=== PATIENT | female | born 1950 | race Caucasian/White ===

== ENCOUNTER 2016-09-19 12:28 | Inpatient (IN) ==
[2016-09-21] MEDS ORDERED: *HR* OxyCODONE Immed Rel 5 MG TABLET PO PRN ×2 (12:44→14:29)
[2016-09-21] MEDS ORDERED: *HR* OxyCODONE/APAP 5/325 TABLET PO PRN ×2 (13:23)
[2016-09-21] MEDS: *HR* OxyCODONE Immed Rel 5 MG TABLET PO PRN ×2 (17:21→22:07)
[2016-09-22 05:52] LABS: INR 1.1; Prothrombin Time 12.3 Seconds (9.4-12.1)
[2016-09-22 05:57] LABS: Basophils # 0.1 K/mcL (0.0-0.2); Basophils % 0.8 %; Eosinophils # 0.2 K/mcL (0.0-0.6); Eosinophils % 2.9 %; Hemoglobin 11.1 g/dL (11.5-15.4); Immature Granulocytes % 0.6 % (0-4); Lymphocytes # 1.6 K/mcL (0.6-4.6); Lymphocytes % 24.8 %; Mean Corpuscular HGB Conc 33.6 g/dL (31.6-35.5); Mean Corpuscular Hemoglobin 30.1 pg (28.0-33.3); Mean Corpuscular Volume 89.4 fL (83.0-100.0); Mean Platelet Volume 10.8 fL (9.4-12.4); Monocytes # 0.7 K/mcL (0.0-1.3); Monocytes % 10.4 %; Platelet Count 266 K/mcL (140-400); Red Blood Count 3.69 M/mcL (3.82-4.97); Red Cell Distribution Width 15.6 % (11.5-14.5); Segmented Neutrophils % 60.5 %
[2016-09-22 06:02] LABS: BUN/Creatinine Ratio 12 (6-26); Blood Urea Nitrogen 8 mg/dL (7-20); Calcium 9.3 mg/dL (8.6-10.8); Carbon Dioxide 27 mEq/L (19-29); Chloride 103 mEq/L (98-109); Glucose 103 mg/dL (70-99); Osmolality,Calculated 289 (280-300); Potassium 3.9 mEq/L (3.5-4.5); Sodium 140 mEq/L (136-145); eGFR For African Americans > 60 (> 60); eGFR For Non-African Americans > 60 (> 60)
[2016-09-22] MEDS: *HR* OxyCODONE Immed Rel 5 MG TABLET PO PRN ×5 (06:09→22:22)
[2016-09-22] MEDS: Ascorbic Acid 500 MG TABLET PO SCH (08:36)
[2016-09-22] MEDS: Cyanocobalamin (B-12) 1,000 MCG TABLET PO SCH (08:36)
[2016-09-22] MEDS: Aspirin Enteric Coated 325 MG Tablet PO SCH (08:36)
--- NOTE | 2016-09-22 14:33 | Internal Med History&Physical ---
Date of Encounter: 09/22/16 Time of Encounter: 14:00 Assessment and Plan (1) Closed fracture of femur with nonunion Current visit: No Status: Acute Working with PT OT and TR. Qualifiers: Encounter type: subsequent encounter Femur location: unspecified portion of femur Fracture morphology: unspecified fracture morphology Laterality: left Qualified Code(s): S72.92XK - Unspecified fracture of left femur, subsequent encounter for closed fracture with nonunion Internal Medicine - H&P: HPI Admitted From: Hospital to Hospital Transfer Plans for Post Hospital Care: Home History of present illness: Ms. Allen is a 65 year old female Past Med Surg Social Fam HX - Past Medical History Medical history: arthritis, hypertension Psychiatric history: anxiety - Past Surgical History Surgical History: appendectomy, herniorrhaphy, hysterectomy, other - Social History Smoking Status: Never smoker Smokeless Tobacco Status: No Alcohol use: none Drug use: none - Family History Father Hx Family Cardiac Disorders: Yes (CAD) Internal Medicine - H&P: Meds Ascorbic Acid [Vitamin C] 500 mg PO DAILY 02/20/15 [History] Propranolol HCl 40 mg PO BID 02/20/15 [History] Zolpidem [Ambien] 10 mg PO HS #30 tablet 04/02/16 [Rx] Aspirin Enteric Coated [Aspirin EC] 325 mg PO DAILY #21 tablet. 09/14/16 [Rx] OxyCODONE Immed Rel [Roxicodone 5 MG] 5 - 10 mg PO Q6HR PRN #40 tablet 09/14/16 [Rx] Cyanocobalamin (Vitamin B-12) [Vitamin B12] 5,000 mcg PO DAILY 09/15/16 [History ] Paroxetine HCl [Paroxetine] 40 mg PO DAILY 09/15/16 [History] Tizanidine HCl 6 mg PO TID PRN 09/15/16 [History] Ascorbic Acid [Vitamin C] 500 mg PO BIDWM #60 tablet 09/21/16 [Rx] Docusate [Colace] 100 mg PO BID #20 capsule 09/21/16 [Rx] Ferrous Sulfate 325 mg PO BIDWM tablet 09/21/16 [Rx] Levofloxacin [Levaquin] 500 mg PO DAILY 2 Days 09/21/16 [Rx] Losartan [Cozaar] 25 mg PO DAILY #30 tablet 09/21/16 [Rx] Multivit/Ca/Min/Fe/FA [Thera M Plus] 1 tab PO DAILY #0 tablet 09/21/16 [Rx] OxyCODONE Immed Rel [Roxicodone 5 MG] 5 - 10 mg PO Q6HR PRN #30 tab 09/21/16 [Rx ] Allergies fentanyl Adverse Reaction (Verified 07/01/16 19:51) Hives ketorolac [From Toradol] Adverse Reaction (Verified 07/01/16 19:51) Hives Penicillins Adverse Reaction (Verified 07/01/16 19:51) Hives prochlorperazine [From Compazine] Adverse Reaction (Verified 07/01/16 19:51) Hives All Systems PM: A 10-system review of systems was performed and is negative for pertinent findings except as documented above in the HPI. - Constitutional Vitals: Temp Pulse Resp BP Pulse Ox 97.9 F 59 17 152/84 94 L 09/22/16 07:03 09/22/16 12:56 09/22/16 12:56 09/22/16 12:56 09/22/16 12:56 - Head Head exam: Present: atraumatic, normal inspection, normocephalic - Neck Neck exam general surgery: Present: supple, trachea midline. Absent: lymphadenopathy - Respiratory Respiratory exam: Present: CTAB. Absent: accessory muscle use, rales, rhonchi, wheezes - Cardiovascular Cardiovascular exam: Present: RRR, +S1, +S2. Absent: diastolic murmur, gallop, rubs, systolic murmur - GI/Abdominal GI/Abdominal exam: Present: normal bowel sounds, soft, no peritoneal signs. Absent: distended, tenderness Internal Med - H&P Results - Labs CBC & Chem 7: 09/22/16 05:35 09/22/16 05:35 Labs: Short CBC 09/22/16 Range/Units 05:35 WBC 6.6 (4.3-11.1) K/mcL Hgb 11.1 L (11.5-15.4) g/dL Hct 33.0 L (35.3-44.9) % Plt Count 266 (140-400) K/mcL Neutrophils # 4.0 (1.6-8.9) K/mcL BMP 09/22/16 05:35 Sodium 140 Potassium 3.9 Chloride 103 Carbon Dioxide 27 BUN 8 Creatinine 0.69 Glucose 103 H Calcium 9.3 Lab looks stable - VTE Documentation of Mechanical Device: Graduated compression elastic hosiery
[2016-09-22] MEDS ORDERED: Ibuprofen 800 MG TABLET PO ONE (15:02)
[2016-09-22] MEDS: Ibuprofen 800 MG TABLET PO PRN (18:08)
[2016-09-23] MEDS: *HR* OxyCODONE Immed Rel 5 MG TABLET PO PRN ×5 (05:14→21:28)
[2016-09-23] MEDS: Cyanocobalamin (B-12) 1,000 MCG TABLET PO SCH (08:59)
[2016-09-23] MEDS: Aspirin Enteric Coated 325 MG Tablet PO SCH (09:00)
[2016-09-23] MEDS: Ascorbic Acid 500 MG TABLET PO SCH (09:00)
[2016-09-23] MEDS: Acyclovir 200 MG CAPSULE PO SCH ×2 (14:59→19:53)
[2016-09-23] MEDS: Ibuprofen 800 MG TABLET PO PRN (19:52)
[2016-09-24] MEDS: Cyanocobalamin (B-12) 1,000 MCG TABLET PO SCH (07:50)
[2016-09-24] MEDS: *HR* OxyCODONE Immed Rel 5 MG TABLET PO PRN ×4 (07:50→21:33)
[2016-09-24] MEDS: Ibuprofen 800 MG TABLET PO PRN ×2 (07:50→17:19)
[2016-09-24] MEDS: Acyclovir 200 MG CAPSULE PO SCH ×3 (07:50→19:58)
[2016-09-24] MEDS: Aspirin Enteric Coated 325 MG Tablet PO SCH (07:51)
[2016-09-24] MEDS: Ascorbic Acid 500 MG TABLET PO SCH (07:51)
--- NOTE | 2016-09-24 15:44 | Internal Med Progress Note ---
Date of Encounter: 09/24/16 Time of Encounter: 15:00 - Assessment and plan (1) Closed fracture of femur with nonunion Current Visit: Yes Status: Acute Qualifiers: Encounter type: subsequent encounter Femur location: unspecified portion of femur Fracture morphology: unspecified fracture morphology Laterality: left Qualified Code(s): S72.92XK - Unspecified fracture of left femur, subsequent encounter for closed fracture with nonunion - Time Spent With Patient less than 15 minutes - Subjective Interval history: Patient's here for a hip repair from chronic injury. And is smiling today eating ,improving on a daily basis - Constitutional Vitals: Temp Pulse Resp BP Pulse Ox 97.9 F 57 16 171/64 96 09/24/16 06:59 09/24/16 06:59 09/24/16 06:59 09/24/16 06:59 09/24/16 06:59 - Head Head exam: Present: atraumatic, normal inspection, normocephalic - Neck Neck exam general surgery: Present: supple, trachea midline. Absent: lymphadenopathy - Respiratory Respiratory exam: Present: CTAB. Absent: accessory muscle use, rales, rhonchi, wheezes - Cardiovascular Cardiovascular exam: Present: RRR, +S1, +S2. Absent: diastolic murmur, gallop, rubs, systolic murmur - GI/Abdominal GI/Abdominal exam: Present: normal bowel sounds, soft, no peritoneal signs. Absent: distended, tenderness Internal Medicine: Result - Labs CBC & Chem 7: 09/22/16 05:35 09/22/16 05:35 Labs: Labs look stable - ABG Interpretation ABG results: PT/INR, D-dimer PT 12.3 Seconds (9.4-12.1) H 09/22/16 05:35 - VTE Documentation of Mechanical Device: Graduated compression elastic hosiery Consult Discharge Plan - Plan Referrals: Bird Santos MD [Primary Care Provider] -
[2016-09-25] MEDS: *HR* OxyCODONE Immed Rel 5 MG TABLET PO PRN ×4 (06:10→20:03)
[2016-09-25] MEDS: Acyclovir 200 MG CAPSULE PO SCH ×3 (08:41→20:02)
[2016-09-25] MEDS: Aspirin Enteric Coated 325 MG Tablet PO SCH (08:41)
[2016-09-25] MEDS: Ascorbic Acid 500 MG TABLET PO SCH (08:41)
[2016-09-25] MEDS: Cyanocobalamin (B-12) 1,000 MCG TABLET PO SCH (08:41)
--- NOTE | 2016-09-25 14:02 | Internal Med Progress Note ---
Date of Encounter: 09/25/16 Time of Encounter: 14:00 - Assessment and plan (1) Closed fracture of femur with nonunion Current Visit: Yes Status: Acute Assessment and plan: Patient is status post hip replacement and today I will be checking her wound and staple line. Qualifiers: Encounter type: subsequent encounter Femur location: unspecified portion of femur Fracture morphology: unspecified fracture morphology Laterality: left Qualified Code(s): S72.92XK - Unspecified fracture of left femur, subsequent encounter for closed fracture with nonunion - Subjective Interval history: Patient's doing exceedingly well. She is really turned the corner this week. Complaining less of pain she is ambulating with her walker to the gym and back smiling in being very sociable. - Constitutional Vitals: Temp Pulse Resp BP Pulse Ox 97.6 F 54 18 142/67 98 09/25/16 07:35 09/25/16 07:35 09/25/16 07:35 09/25/16 07:35 09/25/16 07:35 - Head Head exam: Present: atraumatic, normal inspection, normocephalic - Neck Neck exam general surgery: Present: supple, trachea midline. Absent: lymphadenopathy - Respiratory Respiratory exam: Present: CTAB. Absent: accessory muscle use, rales, rhonchi, wheezes - Cardiovascular Cardiovascular exam: Present: RRR, +S1, +S2. 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 D/ / Mickey Chow MD / Mickey Chow MD Interpreting Provider: Mickey Chow MD - VTE Documentation of Mechanical Device: Graduated compression elastic hosiery Consult Discharge Plan - Plan Referrals: Bird Santos MD [Primary Care Provider] -
[2016-09-25 19:15] VITALS: BP 151/78
[2016-09-26] MEDS: *HR* OxyCODONE Immed Rel 5 MG TABLET PO PRN ×4 (02:29→16:03)
[2016-09-26] MEDS: Ibuprofen 800 MG TABLET PO PRN (08:23)
[2016-09-26] MEDS: Aspirin Enteric Coated 325 MG Tablet PO SCH (08:23)
[2016-09-26] MEDS: Acyclovir 200 MG CAPSULE PO SCH ×2 (08:24→15:12)
[2016-09-26] MEDS: Ascorbic Acid 500 MG TABLET PO SCH (08:24)
[2016-09-26] MEDS: Cyanocobalamin (B-12) 1,000 MCG TABLET PO SCH (08:25)
--- NOTE | 2016-09-26 11:22 | Discharge Summary ---
Date of Encounter: 09/26/16 Time of Encounter: 11:00 - Discharge Diagnosis (1) Closed fracture of femur with nonunion Priority: Primary Status: Acute Qualifiers: Encounter type: subsequent encounter Femur location: unspecified portion of femur Fracture morphology: unspecified fracture morphology Laterality: left Qualified Code(s): S72.92XK - Unspecified fracture of left femur, subsequent encounter for closed fracture with nonunion - Discharge Medications Home Medications: Ascorbic Acid [Vitamin C] 500 mg PO DAILY 02/20/15 [History] Propranolol HCl 40 mg PO BID 02/20/15 [History] Zolpidem [Ambien] 10 mg PO HS #30 tablet 04/02/16 [Rx] Aspirin Enteric Coated [Aspirin EC] 325 mg PO DAILY #21 tablet.dr 09/14/16 [Rx] OxyCODONE Immed Rel [Roxicodone 5 MG] 5 - 10 mg PO Q6HR PRN #40 tablet 09/14/16 [Rx] Cyanocobalamin (Vitamin B-12) [Vitamin B12] 5,000 mcg PO DAILY 09/15/16 [History ] Paroxetine HCl [Paroxetine] 40 mg PO DAILY 09/15/16 [History] Tizanidine HCl 6 mg PO TID PRN 09/15/16 [History] Ascorbic Acid [Vitamin C] 500 mg PO BIDWM #60 tablet 09/21/16 [Rx] Docusate [Colace] 100 mg PO BID #20 capsule 09/21/16 [Rx] Ferrous Sulfate 325 mg PO BIDWM tablet 09/21/16 [Rx] Levofloxacin [Levaquin] 500 mg PO DAILY 2 Days 09/21/16 [Rx] Losartan [Cozaar] 25 mg PO DAILY #30 tablet 09/21/16 [Rx] Multivit/Ca/Min/Fe/FA [Thera M Plus] 1 tab PO DAILY #0 tablet 09/21/16 [Rx] OxyCODONE Immed Rel [Roxicodone 5 MG] 5 - 10 mg PO Q6HR PRN #30 tab 09/21/16 [Rx ] Allergies/Adverse Reactions: Allergies fentanyl Adverse Reaction (Verified 07/01/16 19:51) Hives ketorolac [From Toradol] Adverse Reaction (Verified 07/01/16 19:51) Hives Penicillins Adverse Reaction (Verified 07/01/16 19:51) Hives prochlorperazine [From Compazine] Adverse Reaction (Verified 07/01/16 19:51) Hives Date of admission: 09/21/16 11:25 Primary care physician: Bird Hernandez Consults: 09/21/16 12:55 Consult to Occupational Therapy [CONS] Routine Comment: Evaluate, develop and implement POC Consult to Physical Therapy [CONS] Routine Comment: Evaluate, develop and implement POC Consult to Recreational Therapy [CONS] Routine Comment: Evaluate, develop and implement POC Consult to Incinerator Plant Supervisor [CONS] Routine Reason for SW Consult: for discharge planning Discharging clinician: Lico Rojo Anticipated date of discharge: 09/26/16 - Patient Status Disposition: Home Health Service Condition: Good Functional capacity at discharge: uses cane/walker Overall status at discharge: patient is progressing back to baseline - Discharge Instructions Follow Up With: Melonie Duncan PAC [Physician Disaster Response Director] - 10/02/16 10:00 am Bird Santos MD [Primary Care Provider] - 10/14/16 11:00 am Additional Instructions: Follow-up appointments: If there is not an appointment listed below, please call your physician and schedule a follow-up appointment. If you have congestive heart failure and your symptoms return, make an appointment with your physician. Medication List: Carry an up to date list of medications you are taking at all time. We have given you an updated medication list including any new medications that you have been prescribed. Please provide that list to your primary provider Symptoms: If your condition changes or you experience any of the following symptoms, notify your physician immediately: Unusual or worsening pain, fever, persistent nausea and vomiting, bleeding, increase in swelling (especially in your legs), sudden weight gain, extreme dizziness, chest pain, increased drainage or redness from a wound or incision. Go to the emergency department if you experience a problem with breathing. Weights: If you have a history of swelling or shortness of breath, weigh yourself daily and notify your physician if you have a weight gain of two or more pounds in one day or 5 or more pounds in a week. If you experience any of the warning signs for stroke: Sudden numbness or weakness of the face, arm or leg; especially on one side of the body, sudden confusion, trouble speaking or understanding, sudden trouble seeing in one or both eyes, sudden trouble walking, dizziness, loss of balance or coordination, sudden sever headache with no cause; Call 911 or go to the emergency room. Stroke is a medical emergency. Some risk factors for stroke: Age, cigarette smoking, diabetes, excessive alcohol consumption, family history , high blood pressure, overweight, physical inactivity, prior stroke, heart attack, diagnosis of carotid artery stenosis or other artery disease. If you smoke, STOP: Smoking or tobacco use significantly increases your risk of heart and lung disease. Your chance of disease greatly increases if you continue to smoke. For more information, call the [place] [employer] quit line for smoking cessation QUIT-NOW ( ) - Diet and Activity Activity: ambulate only with your walker Diet: advance to your usual diet Interval History: Patient was brought [facility] status post surgery for repair of a previous injury and the patient has done well Hospital course: Ms. Allen is a 65 year old female Pain is much improved and she is ambulating about the unit with her walker. She is able to get in and out of bed without assistance - Time Spent with Patient Total time spent providing and/or coordinating discharge services: Less than 30 minutes - Constitutional Vitals: Temp Pulse Resp BP Pulse Ox 98.8 F 63 14 151/78 96 09/25/16 19:14 09/25/16 19:14 09/25/16 19:14 09/25/16 19:14 09/25/16 19:14 General appearance: Present: answers questions appropriately - Head Head exam: Present: atraumatic, normal inspection, normocephalic - Neck Neck exam general surgery: Present: supple, trachea midline. Absent: lymphadenopathy - Respiratory Respiratory exam: Present: CTAB. Absent: accessory muscle use, rales, rhonchi, wheezes - Cardiovascular Cardiovascular exam: Present: RRR, +S1, +S2. Absent: diastolic murmur, gallop, rubs, systolic murmur - GI/Abdominal GI/Abdominal exam: Present: normal bowel sounds, soft, no peritoneal signs. Absent: distended, tenderness - VTE Documentation of Mechanical Device: Graduated compression elastic hosiery
--- NOTE | 2016-09-26 11:30 | Physician Discharge Referral ---
Home Health/Hosp Referral Info Transfer to: Home Health Provider in Charge Post Discharge: PCP - Diagnosis (1) Closed fracture of femur with nonunion Priority: Secondary Status: Acute (2) History of total hip arthroplasty Priority: Primary Status: Acute - Respiratory Orders Smoking Cessation: Smoking cessation has been advised. For more information, call the [place] [employer] Quit Line at 2-508-SWCW-NOW. - Diet/Nutrition Diet/Nutrition Orders: Regular - Activity Activity Orders: Walker - Services Needed Following services are medically necessary services: Nursing, Physical Therapy - Transfer Medications Home Medications: Ascorbic Acid [Vitamin C] 500 mg PO DAILY 02/20/15 [History] Propranolol HCl 40 mg PO BID 02/20/15 [History] Zolpidem [Ambien] 10 mg PO HS #30 tablet 04/02/16 [Rx] Aspirin Enteric Coated [Aspirin EC] 325 mg PO DAILY #21 tablet. 09/14/16 [Rx] OxyCODONE Immed Rel [Roxicodone 5 MG] 5 - 10 mg PO Q6HR PRN #40 tablet 09/14/16 [Rx] Cyanocobalamin (Vitamin B-12) [Vitamin B12] 5,000 mcg PO DAILY 09/15/16 [History ] Paroxetine HCl [Paroxetine] 40 mg PO DAILY 09/15/16 [History] Tizanidine HCl 6 mg PO TID PRN 09/15/16 [History] Ascorbic Acid [Vitamin C] 500 mg PO BIDWM #60 tablet 09/21/16 [Rx] Docusate [Colace] 100 mg PO BID #20 capsule 09/21/16 [Rx] Ferrous Sulfate 325 mg PO BIDWM tablet 09/21/16 [Rx] Levofloxacin [Levaquin] 500 mg PO DAILY 2 Days 09/21/16 [Rx] Losartan [Cozaar] 25 mg PO DAILY #30 tablet 09/21/16 [Rx] Multivit/Ca/Min/Fe/FA [Thera M Plus] 1 tab PO DAILY #0 tablet 09/21/16 [Rx] OxyCODONE Immed Rel [Roxicodone 5 MG] 5 - 10 mg PO Q6HR PRN #30 tab 09/21/16 [Rx ] Allergies/Adverse Reactions: Allergies fentanyl Adverse Reaction (Verified 07/01/16 19:51) Hives ketorolac [From Toradol] Adverse Reaction (Verified 07/01/16 19:51) Hives Penicillins Adverse Reaction (Verified 07/01/16 19:51) Hives prochlorperazine [From Compazine] Adverse Reaction (Verified 07/01/16 19:51) Hives Certification: Further, I certify that my clinical findings support that this patient is homebound (i.e. absences from home require considerable and taxing effort and are for medical reasons or jainism services or infrequently or short duration when for other reasons) because: Homebound Reason: Patient requires assistance of a person or device to safely leave home Attestation: My signature below is to certify that this patient is under my care and that I, or nurse practitioner, or a physician's assistant news director working with me, has a face-to -face encounter with this patient.
== END 2016-09-26 17:00 | disposition home health service (06) | DRG 561 ==
LOC: INPGRE 09-21 11:25
PROVIDERS: ADMIT Internal Medicine; ATTEND Internal Medicine

== ENCOUNTER 2020-03-28 11:15 | Inpatient (IN) ==
[2020-03-28] MEDS: *HR* OxyCODONE Immed Rel 5 MG TABLET PO PRN (19:15)
[2020-03-28] MEDS ORDERED: tiZANidine 4 MG TABLET PO SCH (21:00)
[2020-03-28] MEDS: tiZANidine 4 MG TABLET PO SCH (21:20)
[2020-03-28] MEDS: QUEtiapine Fumarate 25 MG TABLET PO SCH (21:20)
[2020-03-29 06:16] LABS: Basophils # 0.1 K/mcL (0.0-0.2); Basophils % 1.1 %; Eosinophils # 0.2 K/mcL (0.0-0.6); Eosinophils % 3.2 %; Hematocrit 38.5 % (35.3-44.9); Hemoglobin 12.2 g/dL (11.5-15.4); Immature Granulocytes % 0.9 % (0-4); Lymphocytes # 1.5 K/mcL (0.6-4.6); Lymphocytes % 22.7 %; Mean Corpuscular HGB Conc 31.7 g/dL (31.6-35.5); Mean Corpuscular Volume 88.5 fL (83.0-100.0); Mean Platelet Volume 11.2 fL (9.4-12.4); Monocytes # 0.6 K/mcL (0.0-1.3); Neutrophils # 4.1 K/mcL (1.6-8.9); Platelet Count 233 K/mcL (140-400); Red Blood Count 4.35 M/mcL (3.82-4.97); Segmented Neutrophils % 63.1 %; White Blood Count 6.5 K/mcL (4.3-11.1)
[2020-03-29 06:29] LABS: BUN/Creatinine Ratio 18 (6-26); Blood Urea Nitrogen 14 mg/dL (8-23); Calcium 9.6 mg/dL (8.6-10.3); Carbon Dioxide 24 mEq/L (23-29); Chloride 103 mEq/L (98-107); Glucose 110 mg/dL (70-105); Osmolality,Calculated 283 (280-300); Potassium 4.2 mEq/L (3.5-5.1); Sodium 136 mEq/L (136-145); eGFR For African Americans > 60 (> 60); eGFR For Non-African Americans > 60 (> 60)
[2020-03-29] MEDS: *HR* OxyCODONE Immed Rel 5 MG TABLET PO PRN ×3 (06:30→21:59)
[2020-03-29] MEDS: QUEtiapine Fumarate 25 MG TABLET PO SCH ×2 (07:58→20:40)
[2020-03-29] MEDS: PARoxetine 20 MG TABLET PO SCH (07:58)
[2020-03-29] MEDS: tiZANidine 4 MG TABLET PO SCH ×3 (07:58→20:41)
[2020-03-29] MEDS ORDERED: Aspirin Enteric Coated 81 MG Tablet PO SCH (09:00)
[2020-03-29] MEDS: *HR* Enoxaparin 30 MG/0.3 ML SYRINGE SQ SCH (11:57)
[2020-03-29 13:27] LABS: Bilirubin,Urine Negative (Negative); Blood,Urine Small (Negative); Clarity,Urine Slightly Cloudy (Clear); Color,Urine Yellow (Yellow); Glucose,Urine (UA) Normal (Normal); Ketones,Urine Negative (Negative); Leukocyte Esterase,Urine Large (Negative); Nitrite,Urine Positive (Negative); Protein,Urine Negative (Neg-Trace); Specific Gravity,Urine 1.025 (1.010-1.025); Urobilinogen,Urine Normal (Normal)
[2020-03-29] MEDS: Clotrimazole 1% CRM 15 GM TUBE TP PRN (15:24)
[2020-03-29] MEDS ORDERED: Sulfamethoxazole/Trimeth DS 1 EACH TABLET PO SCH ×2 (15:50→20:30)
[2020-03-29 15:55] LABS: RBC,Urine 15-30 per hpf (0-3); WBC,Urine TNTC per hpf (0-3)
[2020-03-29 15:56] LABS: Bacteria,Urine Moderate per hpf (None-Few)
[2020-03-30] MEDS: Clotrimazole 1% CRM 15 GM TUBE TP PRN (04:16)
[2020-03-30] MEDS: Sulfamethoxazole/Trimeth DS 1 EACH TABLET PO SCH ×2 (04:16→20:54)
[2020-03-30] MEDS: *HR* Enoxaparin 30 MG/0.3 ML SYRINGE SQ SCH (04:16)
[2020-03-30] MEDS: QUEtiapine Fumarate 25 MG TABLET PO SCH ×2 (08:33→20:55)
[2020-03-30] MEDS: PARoxetine 20 MG TABLET PO SCH (08:33)
[2020-03-30] MEDS: tiZANidine 4 MG TABLET PO SCH ×3 (08:34→20:55)
[2020-03-30] MEDS: Aspirin Enteric Coated 81 MG Tablet PO SCH (08:35)
[2020-03-30] MEDS: *HR* OxyCODONE Immed Rel 5 MG TABLET PO PRN ×2 (08:38→15:16)
[2020-03-31] MEDS: Sulfamethoxazole/Trimeth DS 1 EACH TABLET PO SCH ×2 (05:03→17:55)
[2020-03-31] MEDS: *HR* Enoxaparin 30 MG/0.3 ML SYRINGE SQ SCH (05:03)
[2020-03-31] MEDS: *HR* OxyCODONE Immed Rel 5 MG TABLET PO PRN ×3 (05:03→19:03)
[2020-03-31] MEDS: Aspirin Enteric Coated 81 MG Tablet PO SCH (08:48)
[2020-03-31] MEDS: tiZANidine 4 MG TABLET PO SCH ×3 (08:48→20:48)
[2020-03-31] MEDS: QUEtiapine Fumarate 25 MG TABLET PO SCH ×2 (08:48→20:47)
[2020-03-31] MEDS: PARoxetine 20 MG TABLET PO SCH (08:48)
[2020-04-01] MEDS: Sulfamethoxazole/Trimeth DS 1 EACH TABLET PO SCH ×2 (06:10→17:51)
[2020-04-01] MEDS: *HR* OxyCODONE Immed Rel 5 MG TABLET PO PRN ×3 (06:11→20:12)
[2020-04-01] MEDS: *HR* Enoxaparin 40 MG/0.4 ML SYRINGE SQ SCH (06:12)
[2020-04-01] MEDS: tiZANidine 4 MG TABLET PO SCH ×3 (07:56→22:11)
[2020-04-01] MEDS: QUEtiapine Fumarate 25 MG TABLET PO SCH ×2 (07:56→22:09)
[2020-04-01] MEDS: Aspirin Enteric Coated 81 MG Tablet PO SCH (07:56)
[2020-04-01] MEDS: PARoxetine 20 MG TABLET PO SCH (07:56)
[2020-04-01] MEDS: Nitrofurantoin (BID) 100 MG CAPSULE PO SCH (17:51)
[2020-04-02] MEDS: Sulfamethoxazole/Trimeth DS 1 EACH TABLET PO SCH (06:07)
[2020-04-02] MEDS: *HR* Enoxaparin 40 MG/0.4 ML SYRINGE SQ SCH (06:07)
[2020-04-02] MEDS: *HR* OxyCODONE Immed Rel 5 MG TABLET PO PRN ×3 (06:07→23:20)
[2020-04-02] MEDS: QUEtiapine Fumarate 25 MG TABLET PO SCH ×2 (08:45→20:19)
[2020-04-02] MEDS: Aspirin Enteric Coated 81 MG Tablet PO SCH (08:45)
[2020-04-02] MEDS: tiZANidine 4 MG TABLET PO SCH ×3 (08:45→20:19)
[2020-04-02] MEDS: Nitrofurantoin (BID) 100 MG CAPSULE PO SCH (08:45)
[2020-04-02] MEDS: PARoxetine 20 MG TABLET PO SCH (08:45)
[2020-04-02 10:27] LABS: Basophils # 0.1 K/mcL (0.0-0.2); Basophils % 0.4 %; Eosinophils # 0.1 K/mcL (0.0-0.6); Eosinophils % 0.8 %; Hematocrit 39.1 % (35.3-44.9); Hemoglobin 12.6 g/dL (11.5-15.4); Immature Granulocytes % 0.3 % (0-4); Lymphocytes # 0.6 K/mcL (0.6-4.6); Lymphocytes % 3.3 %; Mean Corpuscular HGB Conc 32.2 g/dL (31.6-35.5); Mean Corpuscular Hemoglobin 28.4 pg (28.0-33.3); Mean Corpuscular Volume 88.1 fL (83.0-100.0); Mean Platelet Volume 10.9 fL (9.4-12.4); Monocytes # 0.4 K/mcL (0.0-1.3); Monocytes % 2.3 %; Neutrophils # 16.4 K/mcL (1.6-8.9); Platelet Count 279 K/mcL (140-400); Red Blood Count 4.44 M/mcL (3.82-4.97); Red Cell Distribution Width 15.5 % (11.5-14.5); Segmented Neutrophils % 92.9 %; White Blood Count 17.6 K/mcL (4.3-11.1)
[2020-04-02 10:44] LABS: Alanine Aminotransferase 35 Units/L (7-52); Albumin 4.1 g/dL (3.5-5.7); Albumin/Globulin Ratio 1.2 (1.1-2.2); Alkaline Phosphatase 177 Units/L (34-104); Aspartate Amino Transferase 36 Units/L (13-39); BUN/Creatinine Ratio 18 (6-26); Blood Urea Nitrogen 15 mg/dL (8-23); Calcium 9.5 mg/dL (8.6-10.3); Carbon Dioxide 22 mEq/L (23-29); Chloride 99 mEq/L (98-107); Globulin 3.4 g/dL (2.4-3.5); Glucose 155 mg/dL (70-105); Osmolality,Calculated 276 (280-300); Potassium 4.7 mEq/L (3.5-5.1); Sodium 131 mEq/L (136-145); Total Protein 7.5 g/dL (6.4-8.9); eGFR For African Americans > 60 (> 60); eGFR For Non-African Americans > 60 (> 60)
[2020-04-02] MEDS: levoFLOXacin 750 MG/150 ML 750 MG/150 ML BAG IVPB SCH (15:29)
[2020-04-02] MEDS: 0.9 % Sodium Chloride 1,000 ML IVC SCH (15:29)
[2020-04-03] MEDS: *HR* OxyCODONE Immed Rel 5 MG TABLET PO PRN ×3 (06:47→22:11)
[2020-04-03] MEDS ORDERED: levoFLOXacin 750 MG/150 ML 750 MG/150 ML BAG IVPB SCH (09:00)
[2020-04-03] MEDS: levoFLOXacin 750 MG/150 ML 750 MG/150 ML BAG IVPB SCH (09:10)
[2020-04-03] MEDS: QUEtiapine Fumarate 25 MG TABLET PO SCH ×2 (09:12→20:25)
[2020-04-03] MEDS: tiZANidine 4 MG TABLET PO SCH ×4 (09:12→20:26)
[2020-04-03] MEDS: PARoxetine 20 MG TABLET PO SCH (09:12)
[2020-04-03] MEDS: 0.9 % Sodium Chloride 1,000 ML IVC SCH ×2 (15:30→19:31)
[2020-04-04] MEDS: 0.9 % Sodium Chloride 1,000 ML IVC SCH (03:28)
[2020-04-04] MEDS: *HR* OxyCODONE Immed Rel 5 MG TABLET PO PRN ×3 (03:36→18:28)
[2020-04-04 05:34] LABS: Alanine Aminotransferase 29 Units/L (7-52); Albumin 3.4 g/dL (3.5-5.7); Albumin/Globulin Ratio 1.3 (1.1-2.2); Alkaline Phosphatase 124 Units/L (34-104); Aspartate Amino Transferase 29 Units/L (13-39); BUN/Creatinine Ratio 26 (6-26); Bilirubin,Total 0.4 mg/dL (0.3-1.0); Blood Urea Nitrogen 23 mg/dL (8-23); Calcium 8.6 mg/dL (8.6-10.3); Carbon Dioxide 21 mEq/L (23-29); Chloride 108 mEq/L (98-107); Globulin 2.7 g/dL (2.4-3.5); Glucose 96 mg/dL (70-105); Osmolality,Calculated 286 (280-300); Potassium 4.5 mEq/L (3.5-5.1); Sodium 136 mEq/L (136-145); Total Protein 6.1 g/dL (6.4-8.9); eGFR For African Americans > 60 (> 60); eGFR For Non-African Americans > 60 (> 60)
[2020-04-04 06:40] LABS: Hematocrit 32.9 % (35.3-44.9); Hemoglobin 10.3 g/dL (11.5-15.4); Mean Corpuscular HGB Conc 31.3 g/dL (31.6-35.5); Mean Corpuscular Hemoglobin 28.1 pg (28.0-33.3); Mean Corpuscular Volume 89.9 fL (83.0-100.0); Platelet Count 215 K/mcL (140-400); Red Blood Count 3.66 M/mcL (3.82-4.97); Red Cell Distribution Width 15.5 % (11.5-14.5); White Blood Count 5.5 K/mcL (4.3-11.1)
[2020-04-04] MEDS: QUEtiapine Fumarate 25 MG TABLET PO SCH ×2 (08:56→20:03)
[2020-04-04] MEDS: levoFLOXacin 750 MG TABLET PO SCH (08:56)
[2020-04-04] MEDS: PARoxetine 20 MG TABLET PO SCH (08:57)
[2020-04-04] MEDS: tiZANidine 4 MG TABLET PO SCH ×3 (08:57→20:03)
[2020-04-05] MEDS: *HR* OxyCODONE Immed Rel 5 MG TABLET PO PRN ×3 (03:48→18:18)
[2020-04-05] MEDS: *HR* Enoxaparin 40 MG/0.4 ML SYRINGE SQ SCH (03:49)
[2020-04-05] MEDS: PARoxetine 20 MG TABLET PO SCH (08:41)
[2020-04-05] MEDS: tiZANidine 4 MG TABLET PO SCH ×3 (08:41→21:20)
[2020-04-05] MEDS: QUEtiapine Fumarate 25 MG TABLET PO SCH ×2 (08:41→21:20)
[2020-04-05] MEDS: levoFLOXacin 750 MG TABLET PO SCH (08:43)
[2020-04-06] MEDS: *HR* OxyCODONE Immed Rel 5 MG TABLET PO PRN ×3 (05:05→18:44)
[2020-04-06] MEDS: *HR* Enoxaparin 40 MG/0.4 ML SYRINGE SQ SCH (05:06)
[2020-04-06] MEDS: PARoxetine 20 MG TABLET PO SCH (08:45)
[2020-04-06] MEDS: tiZANidine 4 MG TABLET PO SCH ×3 (08:45→20:50)
[2020-04-06] MEDS: QUEtiapine Fumarate 25 MG TABLET PO SCH ×2 (08:45→20:51)
[2020-04-06] MEDS: levoFLOXacin 750 MG TABLET PO SCH (08:45)
[2020-04-07] MEDS: *HR* Enoxaparin 40 MG/0.4 ML SYRINGE SQ SCH (05:39)
[2020-04-07] MEDS: *HR* OxyCODONE Immed Rel 5 MG TABLET PO PRN ×3 (05:43→19:44)
[2020-04-07] MEDS: levoFLOXacin 750 MG TABLET PO SCH (10:04)
[2020-04-07] MEDS: PARoxetine 20 MG TABLET PO SCH (10:05)
[2020-04-07] MEDS: QUEtiapine Fumarate 25 MG TABLET PO SCH ×2 (10:05→19:43)
[2020-04-07] MEDS: tiZANidine 4 MG TABLET PO SCH ×4 (10:05→19:44)
[2020-04-07 14:38] LABS: Basophils # 0.1 K/mcL (0.0-0.2); Basophils % 1.3 %; Eosinophils # 0.2 K/mcL (0.0-0.6); Eosinophils % 3.1 %; Hematocrit 33.4 % (35.3-44.9); Hemoglobin 10.6 g/dL (11.5-15.4); Immature Granulocytes % 0.7 % (0-4); Lymphocytes # 1.7 K/mcL (0.6-4.6); Lymphocytes % 27.3 %; Mean Corpuscular HGB Conc 31.7 g/dL (31.6-35.5); Mean Corpuscular Hemoglobin 28.3 pg (28.0-33.3); Mean Corpuscular Volume 89.1 fL (83.0-100.0); Mean Platelet Volume 10.8 fL (9.4-12.4); Monocytes # 0.5 K/mcL (0.0-1.3); Monocytes % 8.8 %; Neutrophils # 3.6 K/mcL (1.6-8.9); Platelet Count 276 K/mcL (140-400); Red Blood Count 3.75 M/mcL (3.82-4.97); Red Cell Distribution Width 15.3 % (11.5-14.5); Segmented Neutrophils % 58.8 %; White Blood Count 6.2 K/mcL (4.3-11.1)
[2020-04-07] MEDS: 0.9 % Sodium Chloride 1,000 ML IVC SCH (14:50)
[2020-04-07 15:10] LABS: Bilirubin,Urine Negative (Negative); Blood,Urine Negative (Negative); Clarity,Urine Clear (Clear); Color,Urine Yellow (Yellow); Glucose,Urine (UA) Normal (Normal); Ketones,Urine Negative (Negative); Leukocyte Esterase,Urine Negative (Negative); Nitrite,Urine Negative (Negative); Protein,Urine Negative (Neg-Trace); Specific Gravity,Urine 1.025 (1.010-1.025); Urobilinogen,Urine Normal (Normal)
[2020-04-07 15:18] LABS: Albumin 3.4 g/dL (3.5-5.7); Albumin/Globulin Ratio 1.3 (1.1-2.2); Bilirubin,Total 0.3 mg/dL (0.3-1.0); Calcium 8.9 mg/dL (8.6-10.3); Globulin 2.6 g/dL (2.4-3.5); Potassium 4.5 mEq/L (3.5-5.1)
[2020-04-08] MEDS: 0.9 % Sodium Chloride 1,000 ML IVC SCH ×2 (00:35→10:50)
[2020-04-08] MEDS: *HR* OxyCODONE Immed Rel 5 MG TABLET PO PRN ×3 (02:53→17:07)
[2020-04-08] MEDS: *HR* Enoxaparin 40 MG/0.4 ML SYRINGE SQ SCH (05:32)
[2020-04-08] MEDS: levoFLOXacin 750 MG TABLET PO SCH (09:39)
[2020-04-08] MEDS: PARoxetine 20 MG TABLET PO SCH (09:39)
[2020-04-08] MEDS: QUEtiapine Fumarate 25 MG TABLET PO SCH ×2 (09:39→20:42)
[2020-04-08] MEDS: tiZANidine 4 MG TABLET PO SCH ×3 (09:40→20:43)
[2020-04-09] MEDS: *HR* OxyCODONE Immed Rel 5 MG TABLET PO PRN ×4 (02:30→21:27)
[2020-04-09] MEDS: *HR* Enoxaparin 40 MG/0.4 ML SYRINGE SQ SCH (04:59)
[2020-04-09] MEDS: QUEtiapine Fumarate 25 MG TABLET PO SCH ×2 (08:14→21:23)
[2020-04-09] MEDS: tiZANidine 4 MG TABLET PO SCH ×3 (08:14→21:26)
[2020-04-09] MEDS: PARoxetine 20 MG TABLET PO SCH (08:14)
[2020-04-09] MEDS: levoFLOXacin 750 MG TABLET PO SCH (08:14)
[2020-04-09] MEDS: amLODIPine 5 MG TABLET PO SCH (11:05)
[2020-04-10] MEDS: *HR* Enoxaparin 40 MG/0.4 ML SYRINGE SQ SCH (04:18)
[2020-04-10] MEDS: PARoxetine 20 MG TABLET PO SCH (08:29)
[2020-04-10] MEDS: QUEtiapine Fumarate 25 MG TABLET PO SCH ×2 (08:30→20:58)
[2020-04-10] MEDS: amLODIPine 5 MG TABLET PO SCH (08:30)
[2020-04-10] MEDS: *HR* OxyCODONE Immed Rel 5 MG TABLET PO PRN ×3 (08:30→20:58)
[2020-04-10] MEDS: tiZANidine 4 MG TABLET PO SCH ×3 (10:29→20:59)
[2020-04-11] MEDS: *HR* Enoxaparin 40 MG/0.4 ML SYRINGE SQ SCH (04:37)
[2020-04-11] MEDS: *HR* OxyCODONE Immed Rel 5 MG TABLET PO PRN ×3 (04:37→21:42)
[2020-04-11] MEDS: QUEtiapine Fumarate 25 MG TABLET PO SCH ×2 (08:21→21:41)
[2020-04-11] MEDS: PARoxetine 20 MG TABLET PO SCH (08:22)
[2020-04-11] MEDS: tiZANidine 4 MG TABLET PO SCH ×3 (08:22→21:42)
[2020-04-11] MEDS: amLODIPine 5 MG TABLET PO SCH (08:22)
[2020-04-12] MEDS: *HR* Enoxaparin 40 MG/0.4 ML SYRINGE SQ SCH (04:49)
[2020-04-12] MEDS: *HR* OxyCODONE Immed Rel 5 MG TABLET PO PRN ×4 (04:50→21:03)
[2020-04-12] MEDS: PARoxetine 20 MG TABLET PO SCH (08:58)
[2020-04-12] MEDS: amLODIPine 5 MG TABLET PO SCH (08:58)
[2020-04-12] MEDS: tiZANidine 4 MG TABLET PO SCH ×3 (08:58→21:05)
[2020-04-12] MEDS: QUEtiapine Fumarate 25 MG TABLET PO SCH ×2 (08:58→21:04)
[2020-04-12 19:52] LABS: Adenovirus Not Detected (Not Detect); Bordetella Pertussis Not Detected (Not Detect); Chlamydophila pneumoniae Not Detected (Not Detect); Coronavirus 229E Not Detected (Not Detect); Coronavirus HKU1 Not Detected (Not Detect); Coronavirus NL63 Not Detected (Not Detect); Coronavirus OC43 Not Detected (Not Detect); Human Metapneumovirus Not Detected (Not Detect); Human Rhinovirus/Enterovirus Not Detected (Not Detect); Influenza A Subtype 2009 H1 Not Detected (Not Detect); Influenza B Not Detected (Not Detect); Mycoplasma pneumoniae Not Detected (Not Detect); Parainfluenza Virus 1 Not Detected (Not Detect); Parainfluenza Virus 2 Not Detected (Not Detect); Parainfluenza Virus 3 Not Detected (Not Detect); Parainfluenza Virus 4 Not Detected (Not Detect); Respiratory Syncytial Virus Not Detected (Not Detect); SARS-CoV-2 Not Detected (Not Detect)
[2020-04-13] MEDS: *HR* Enoxaparin 40 MG/0.4 ML SYRINGE SQ SCH (04:45)
[2020-04-13] MEDS: *HR* OxyCODONE Immed Rel 5 MG TABLET PO PRN ×3 (04:45→20:41)
[2020-04-13 05:00] LABS: Basophils # 0.1 K/mcL (0.0-0.2); Basophils % 1.5 %; Eosinophils # 0.2 K/mcL (0.0-0.6); Eosinophils % 2.7 %; Hematocrit 34.8 % (35.3-44.9); Hemoglobin 10.7 g/dL (11.5-15.4); Immature Granulocytes % 0.5 % (0-4); Lymphocytes # 2.1 K/mcL (0.6-4.6); Lymphocytes % 37.3 %; Mean Corpuscular HGB Conc 30.7 g/dL (31.6-35.5); Mean Corpuscular Hemoglobin 27.9 pg (28.0-33.3); Mean Corpuscular Volume 90.6 fL (83.0-100.0); Mean Platelet Volume 10.6 fL (9.4-12.4); Monocytes # 0.6 K/mcL (0.0-1.3); Monocytes % 10.4 %; Neutrophils # 2.6 K/mcL (1.6-8.9); Platelet Count 261 K/mcL (140-400); Red Blood Count 3.84 M/mcL (3.82-4.97); Red Cell Distribution Width 15.4 % (11.5-14.5); Segmented Neutrophils % 47.6 %; White Blood Count 5.5 K/mcL (4.3-11.1)
[2020-04-13 05:21] LABS: BUN/Creatinine Ratio 22 (6-26); Blood Urea Nitrogen 15 mg/dL (8-23); Calcium 8.9 mg/dL (8.6-10.3); Carbon Dioxide 26 mEq/L (23-29); Chloride 105 mEq/L (98-107); Glucose 87 mg/dL (70-105); Osmolality,Calculated 288 (280-300); Sodium 139 mEq/L (136-145); eGFR For African Americans > 60 (> 60); eGFR For Non-African Americans > 60 (> 60)
[2020-04-13] MEDS: amLODIPine 5 MG TABLET PO SCH (08:30)
[2020-04-13] MEDS: QUEtiapine Fumarate 25 MG TABLET PO SCH ×2 (08:31→20:41)
[2020-04-13] MEDS: tiZANidine 4 MG TABLET PO SCH ×3 (08:31→20:42)
[2020-04-13] MEDS: PARoxetine 20 MG TABLET PO SCH (08:31)
[2020-04-13] MEDS ORDERED: *HR* OxyCODONE Immed Rel 5 MG TABLET PO ONE (23:58)
[2020-04-14] MEDS: *HR* OxyCODONE Immed Rel 5 MG TABLET PO PRN ×4 (06:02→23:42)
[2020-04-14] MEDS: *HR* Enoxaparin 40 MG/0.4 ML SYRINGE SQ SCH (06:02)
[2020-04-14] MEDS: QUEtiapine Fumarate 25 MG TABLET PO SCH ×2 (08:25→20:52)
[2020-04-14] MEDS: tiZANidine 4 MG TABLET PO SCH ×3 (08:25→20:53)
[2020-04-14] MEDS: amLODIPine 5 MG TABLET PO SCH (08:26)
[2020-04-14] MEDS: PARoxetine 20 MG TABLET PO SCH (08:26)
[2020-04-15] MEDS: *HR* Enoxaparin 40 MG/0.4 ML SYRINGE SQ SCH (05:11)
[2020-04-15] MEDS: QUEtiapine Fumarate 25 MG TABLET PO SCH ×2 (08:06→19:57)
[2020-04-15] MEDS: PARoxetine 20 MG TABLET PO SCH (08:06)
[2020-04-15] MEDS: amLODIPine 5 MG TABLET PO SCH (08:06)
[2020-04-15] MEDS: tiZANidine 4 MG TABLET PO SCH ×3 (08:06→19:57)
[2020-04-15] MEDS: *HR* OxyCODONE Immed Rel 5 MG TABLET PO PRN ×3 (09:41→22:00)
[2020-04-16] MEDS: *HR* OxyCODONE Immed Rel 5 MG TABLET PO PRN ×3 (04:44→20:28)
[2020-04-16] MEDS: *HR* Enoxaparin 40 MG/0.4 ML SYRINGE SQ SCH (04:44)
[2020-04-16] MEDS: PARoxetine 20 MG TABLET PO SCH (09:57)
[2020-04-16] MEDS: tiZANidine 4 MG TABLET PO SCH ×3 (09:58→20:28)
[2020-04-16] MEDS: amLODIPine 5 MG TABLET PO SCH (09:58)
[2020-04-16] MEDS: QUEtiapine Fumarate 25 MG TABLET PO SCH ×2 (09:58→20:27)
[2020-04-16] MEDS: Aspirin Enteric Coated 81 MG Tablet PO SCH (13:06)
[2020-04-17] MEDS: *HR* Enoxaparin 40 MG/0.4 ML SYRINGE SQ SCH (05:46)
[2020-04-17] MEDS: *HR* OxyCODONE Immed Rel 5 MG TABLET PO PRN ×3 (05:47→20:47)
[2020-04-17] MEDS: tiZANidine 4 MG TABLET PO SCH ×3 (08:22→20:48)
[2020-04-17] MEDS: PARoxetine 20 MG TABLET PO SCH (08:22)
[2020-04-17] MEDS: QUEtiapine Fumarate 25 MG TABLET PO SCH ×2 (08:22→20:47)
[2020-04-17] MEDS: amLODIPine 5 MG TABLET PO SCH (08:23)
[2020-04-17] MEDS: Aspirin Enteric Coated 81 MG Tablet PO SCH (08:23)
[2020-04-17] MEDS: Topiramate 25 MG TABLET PO SCH ×2 (09:36→20:48)
[2020-04-17 10:07] LABS: Hematocrit 37.2 % (35.3-44.9); Hemoglobin 11.5 g/dL (11.5-15.4); Mean Corpuscular HGB Conc 30.9 g/dL (31.6-35.5); Mean Corpuscular Hemoglobin 27.8 pg (28.0-33.3); Mean Corpuscular Volume 90.1 fL (83.0-100.0); Platelet Count 272 K/mcL (140-400); Red Blood Count 4.13 M/mcL (3.82-4.97); Red Cell Distribution Width 15.2 % (11.5-14.5); White Blood Count 5.5 K/mcL (4.3-11.1)
[2020-04-17 10:14] LABS: BUN/Creatinine Ratio 24 (6-26); Blood Urea Nitrogen 17 mg/dL (8-23); Calcium 9.1 mg/dL (8.6-10.3); Carbon Dioxide 27 mEq/L (23-29); Chloride 102 mEq/L (98-107); Glucose 201 mg/dL (70-105); Osmolality,Calculated 289 (280-300); Potassium 3.8 mEq/L (3.5-5.1); Sodium 136 mEq/L (136-145); eGFR For African Americans > 60 (> 60); eGFR For Non-African Americans > 60 (> 60)
[2020-04-17] MEDS ORDERED: Topiramate 25 MG TABLET PO SCH (21:00)
[2020-04-18] MEDS: *HR* Enoxaparin 40 MG/0.4 ML SYRINGE SQ SCH (05:33)
[2020-04-18] MEDS: *HR* OxyCODONE Immed Rel 5 MG TABLET PO PRN ×3 (05:33→21:07)
[2020-04-18] MEDS: amLODIPine 5 MG TABLET PO SCH (08:44)
[2020-04-18] MEDS: Aspirin Enteric Coated 81 MG Tablet PO SCH (08:44)
[2020-04-18] MEDS: Topiramate 25 MG TABLET PO SCH ×2 (08:44→21:06)
[2020-04-18] MEDS: PARoxetine 20 MG TABLET PO SCH (08:44)
[2020-04-18] MEDS: tiZANidine 4 MG TABLET PO SCH ×3 (08:44→21:08)
[2020-04-18] MEDS: QUEtiapine Fumarate 25 MG TABLET PO SCH ×2 (08:44→21:06)
[2020-04-19] MEDS: *HR* Enoxaparin 40 MG/0.4 ML SYRINGE SQ SCH (05:26)
[2020-04-19] MEDS: *HR* OxyCODONE Immed Rel 5 MG TABLET PO PRN ×3 (05:26→20:54)
[2020-04-19] MEDS: amLODIPine 5 MG TABLET PO SCH (08:54)
[2020-04-19] MEDS: PARoxetine 20 MG TABLET PO SCH (08:54)
[2020-04-19] MEDS: QUEtiapine Fumarate 25 MG TABLET PO SCH ×2 (08:54→20:54)
[2020-04-19] MEDS: Aspirin Enteric Coated 81 MG Tablet PO SCH (08:54)
[2020-04-19] MEDS: Topiramate 25 MG TABLET PO SCH ×2 (08:55→20:54)
[2020-04-19] MEDS: tiZANidine 4 MG TABLET PO SCH ×3 (08:55→20:54)
[2020-04-20] MEDS: *HR* Enoxaparin 40 MG/0.4 ML SYRINGE SQ SCH (05:41)
[2020-04-20] MEDS: *HR* OxyCODONE Immed Rel 5 MG TABLET PO PRN ×3 (05:42→21:41)
[2020-04-20] MEDS: tiZANidine 4 MG TABLET PO SCH ×3 (08:48→21:38)
[2020-04-20] MEDS: QUEtiapine Fumarate 25 MG TABLET PO SCH ×2 (08:48→21:39)
[2020-04-20] MEDS: amLODIPine 5 MG TABLET PO SCH (08:49)
[2020-04-20] MEDS: Topiramate 25 MG TABLET PO SCH ×2 (08:49→21:38)
[2020-04-20] MEDS: PARoxetine 20 MG TABLET PO SCH (08:49)
[2020-04-20] MEDS: Aspirin Enteric Coated 81 MG Tablet PO SCH (08:49)
[2020-04-20] MEDS ORDERED: tiZANidine 4 MG TABLET PO ONE (15:50)
[2020-04-21] MEDS: *HR* OxyCODONE Immed Rel 5 MG TABLET PO PRN ×3 (05:54→18:07)
[2020-04-21] MEDS: *HR* Enoxaparin 40 MG/0.4 ML SYRINGE SQ SCH (05:56)
[2020-04-21] MEDS: Topiramate 25 MG TABLET PO SCH ×2 (09:56→21:11)
[2020-04-21] MEDS: PARoxetine 20 MG TABLET PO SCH (09:57)
[2020-04-21] MEDS: tiZANidine 4 MG TABLET PO SCH ×3 (09:57→21:12)
[2020-04-21] MEDS: Aspirin Enteric Coated 81 MG Tablet PO SCH (09:57)
[2020-04-21] MEDS: QUEtiapine Fumarate 25 MG TABLET PO SCH ×2 (09:57→21:11)
[2020-04-21] MEDS: amLODIPine 5 MG TABLET PO SCH (09:57)
[2020-04-22] MEDS: *HR* Enoxaparin 40 MG/0.4 ML SYRINGE SQ SCH (05:56)
[2020-04-22] MEDS: *HR* OxyCODONE Immed Rel 5 MG TABLET PO PRN ×2 (05:56→12:55)
[2020-04-22 08:50] VITALS: BP 147/71
[2020-04-22] MEDS: QUEtiapine Fumarate 25 MG TABLET PO SCH (09:40)
[2020-04-22] MEDS: Aspirin Enteric Coated 81 MG Tablet PO SCH (09:40)
[2020-04-22] MEDS: PARoxetine 20 MG TABLET PO SCH (09:40)
[2020-04-22] MEDS: tiZANidine 4 MG TABLET PO SCH ×2 (09:41→14:43)
[2020-04-22] MEDS: Topiramate 25 MG TABLET PO SCH (09:41)
[2020-04-22] MEDS: amLODIPine 5 MG TABLET PO SCH (09:41)
[2020-04-22] MEDS ORDERED: FLU Vac QV 20-21 (6Month+)/PF 0.5 ML SYRINGE IM ONE (14:19)
== END 2020-04-22 15:11 | disposition home health service (06) | DRG 57 ==
LOC: INPGRE 17:20
PROVIDERS: ADMIT Family Medicine; ATTEND Family Medicine